=== PATIENT | female | born 1940 | race Two or more races ===

== ENCOUNTER 2018-08-29 12:41 | Inpatient (IN) | payer MEDICARE, OTHER ==
[~2018-08-29] VITALS: Ht 157.5 cm; Wt 99.8 kg
[2018-08-29 17:35] LABS: BASOPHILS % 0.6 % (0.0-2.0); EOSINOPHILS % 2.8 % (0.0-5.0); HEMATOCRIT. 40.7 % (36.0-48.0); HEMOGLOBIN. 12.5 g/dL (12.0-16.0); LYMPHOCYTES % 24.9 % (20.0-50.0); MEAN CORPUSCULAR HEMOGLOBIN 28.2 pg (28.0-32.0); MEAN CORPUSCULAR VOLUME 91.5 fL (81.0-99.0); MONOCYTES % 7.3 % (2.0-8.0); NEUTROPHILS % 64.4 % (40.0-76.0); RED BLOOD CELL COUNT 4.44 mill/uL (4.2-5.4); RED CELL DISTRIBUTION WIDTH 15.4 % (11.6-14.6)
[2018-08-29 17:39] LABS: CHLORIDE 108 mEq/L (98-107)
[2018-08-29 17:41] LABS: INR 1.1; PARTIAL THROMBOPLASTIN TIME 27.5 sec (23.4-31.0); PROTHROMBIN TIME 10.6 sec (9.1-11.1)
[2018-08-29 17:57] LABS: MEAN PLATELET VOLUME 9.6 fl (7.4-10.4); PLATELET 165 x1000/uL (130-400)
[2018-08-29] MEDS: ONDANSETRON HCL 4MG/2ML INJ IV PRN ×2 (18:32→18:41)
[2018-08-29] MEDS: CLONIDINE 0.1MG TABLET PO PRN ×2 (18:32→18:41)
[2018-08-29] MEDS: ACETAMINOPHEN 325MG TABLET PO PRN ×2 (18:32→18:41)
[2018-08-29] MEDS ORDERED: HYDROMORPHONE HCL/PF 2MG/ML CPJ IV PRN (20:00)
[2018-08-29] MEDS: SODIUM CHLORIDE 0.45% 1,000 ML IV SCH (21:00)
[2018-08-30 00:45] VITALS: BP 122/57
[2018-08-30 00:54] VITALS: BP 122/57
[2018-08-30 04:07] VITALS: BP 109/49
[2018-08-30 07:20] LABS: CHLORIDE 109 mEq/L (98-107)
[2018-08-30 07:42] LABS: LDL CHOLESTEROL 45 mg/dL (5-100)
[2018-08-30 07:43] LABS: HDL CHOLESTEROL 59 mg/dL (40-59)
[2018-08-30 07:44] LABS: BASOPHILS % 0.6 % (0.0-2.0); EOSINOPHILS % 4.8 % (0.0-5.0); HEMATOCRIT. 31.9 % (36.0-48.0); HEMOGLOBIN. 10.3 g/dL (12.0-16.0); LYMPHOCYTES % 26.4 % (20.0-50.0); MEAN CORPUSCULAR HEMOGLOBIN 28.4 pg (28.0-32.0); MEAN CORPUSCULAR VOLUME 88.4 fL (81.0-99.0); MEAN PLATELET VOLUME 9.6 fl (7.4-10.4); MONOCYTES % 9.8 % (2.0-8.0); NEUTROPHILS % 58.4 % (40.0-76.0); PLATELET 176 x1000/uL (130-400); RED BLOOD CELL COUNT 3.62 mill/uL (4.2-5.4); RED CELL DISTRIBUTION WIDTH 14.6 % (11.6-14.6)
[2018-08-30] MEDS ORDERED: PNEUMOCOCCAL 23-VAL P-SAC VAC 0.5 ML IM ONE (08:00)
[2018-08-30] MEDS: ENOXAPARIN 30MG/0.3ML SYR SUBCUT SCH ×2 (08:47→21:46)
[2018-08-30 09:52] LABS: TOTAL IRON BINDING CAPACITY 252 ug/dL (250-450)
[2018-08-30] MEDS ORDERED: INFLUENZA VIRUS VACCINE(AFLURIA) 0.5ML SYR IM ONE (10:00)
[2018-08-30 11:27] VITALS: BP 126/42
[2018-08-30 14:58] LABS: TOTAL IRON BINDING CAPACITY 254 ug/dL (250-450)
[2018-08-30 15:23] LABS: VITAMIN B12 SERUM 1033 pg/mL (211-911)
[2018-08-30 16:22] VITALS: BP 122/53
[2018-08-30 20:00] VITALS: BP 143/54
[2018-08-31] VITALS: BP 133/44
[2018-08-31 04:00] VITALS: BP_SYST 135; BP_SYST 137; BP_DIAS 44; BP_DIAS 71
[2018-08-31 08:00] VITALS: BP_SYST 135; BP_SYST 140; BP_SYST 143; BP_DIAS 59; BP_DIAS 63; BP_DIAS 68
[2018-08-31] MEDS: ENOXAPARIN 30MG/0.3ML SYR SUBCUT SCH ×2 (09:00→21:57)
[2018-08-31 11:49] LABS: OPIATES URINE SCREEN NEGATIVE (NEGATIVE)
[2018-08-31 11:50] LABS: PHENCYCLIDINE URINE SCREEN NEGATIVE (NEGATIVE)
[2018-08-31 11:53] LABS: *AMPHETAMINES SCREEN URINE NEGATIVE (NEGATIVE); *BARBITURATES SCREEN URINE NEGATIVE (NEGATIVE); *BENZODIAZEPINES SCREEN URINE NEGATIVE (NEGATIVE); *COCAINE SCREEN URINE NEGATIVE (NEGATIVE); CANNABINOID URINE SCREEN NEGATIVE (NEGATIVE); METHADONE URINE SCREEN NEGATIVE (NEGATIVE)
[2018-08-31 12:00] VITALS: BP 133/39
[2018-08-31] MEDS: NYSTATIN POWDER 15GM TOP SCH ×3 (13:00→17:26)
[2018-08-31 16:00] VITALS: BP 133/59
[2018-08-31 20:00] VITALS: BP 142/54
[2018-08-31] MEDS: SODIUM CHLORIDE 0.45% 1,000 ML IV SCH (21:59)
[2018-09-01] VITALS: BP 130/47
[2018-09-01 04:00] VITALS: BP 115/41
[2018-09-01 08:00] VITALS: BP 135/59
[2018-09-01] MEDS: ENOXAPARIN 30MG/0.3ML SYR SUBCUT SCH (08:11)
[2018-09-01 08:12] LABS: BASOPHILS % 0.5 % (0.0-2.0); EOSINOPHILS % 4.6 % (0.0-5.0); HEMATOCRIT. 36.2 % (36.0-48.0); LYMPHOCYTES % 30.8 % (20.0-50.0); MEAN CORPUSCULAR VOLUME 87.8 fL (81.0-99.0); MEAN PLATELET VOLUME 9.4 fl (7.4-10.4); MONOCYTES % 8.5 % (2.0-8.0); NEUTROPHILS % 55.6 % (40.0-76.0); PLATELET 204 x1000/uL (130-400); RED BLOOD CELL COUNT 4.13 mill/uL (4.2-5.4); RED CELL DISTRIBUTION WIDTH 14.1 % (11.6-14.6)
[2018-09-01] MEDS: NYSTATIN POWDER 15GM TOP SCH (08:13)
[2018-09-01 08:19] LABS: CHLORIDE 107 mEq/L (98-107)
[2018-09-01 10:42] VITALS: BP 135/59
== END 2018-09-01 14:35 | disposition home or self-care (01) | DRG 74 ==
LOC: ER 14:02 → EDBD 14:02 → 6WST 17:42 → EDBEDREQTM 17:48 → EDBEDREQ 17:48 → ENRESERV 23:49
PROVIDERS: ADMIT Internal Medicine; ATTEND Internal Medicine
PROC: 4A00X4Z Measurement of Central Nervous Electrical Activity, External Approach (ICD-10-PCS; principal; 2018-08-31)
DX: G90.8 Other disorders of autonomic nervous system (principal); E44.0 Moderate protein-calorie malnutrition; Z68.41 Body mass index [BMI] 40.0-44.9, adult; E87.5 Hyperkalemia; D64.9 Anemia, unspecified; E78.00 Pure hypercholesterolemia, unspecified; E86.0 Dehydration; I11.9 Hypertensive heart disease without heart failure; I25.10 Atherosclerotic heart disease of native coronary artery without angina pectoris; Z96.659 Presence of unspecified artificial knee joint; Z88.0 Allergy status to penicillin
CPT/HCPCS: 36415; 70544; 70553; 71045; 78582; 80048; 80061; 80305; 80320; 82607; 82962; 83540; 83550; 83735; 83880; 84134; 84443; 84484; 85044; 90686; 90732; 93005; 93306; 93880; 93970; 97116; 97162; 97165; 99285; A9558; J1650; J2405; G0480

== ENCOUNTER 2021-02-12 11:04 | Emergency (ER) | payer BC ==
[~2021-02-12] VITALS: Ht 167.6 cm; Wt 79.0 kg
[2021-02-12 11:06] VITALS: BP 158/76
== END 2021-02-12 13:50 | disposition home or self-care (01) ==
LOC: ER 11:04
DX: M79.662 Pain in left lower leg (principal); I11.9 Hypertensive heart disease without heart failure; Z88.0 Allergy status to penicillin; Z96.659 Presence of unspecified artificial knee joint
CPT/HCPCS: 73590; 73630; 93970; 99284